=== PATIENT | female | born 1995 ===

== ENCOUNTER 2024-07-03 08:37 | Outpatient (AMB) | payer BC, SELFPAY ==
[2024-07-03 09:08] VITALS: BP 109/73; PULSE 81; RESP 18; TEMP 36.2; O2SAT 98; BMI 28.8
--- NOTE | 2024-07-03 09:08 | AMB.OBINITIA ---
Vital Signs 07/03/24 09:08 Height 1.55 m Height Method Stated Weight 69.059 kg Weight Measurement Method Standing Scale BMI 28.8 BP 109/73 Blood Pressure Source Automatic Cuff Blood Pressure Location Left Upper Arm Position Standing Respiration 18 Pulse 81 Pulse Source Monitor Temp 97.2 F Temp Source Oral Pulse Oximetry (%) 98 Oxygen Delivery Method Room Air Allergies/Home Meds Allergies & Medications Allergies Unable to Assess Allergy (Unverified 07/03/24 09:10) Medication Reconciliation No Known Home Medications 07/03/24 [History Confirmed 07/03/24] Intake Visit Data Collection New Patient or Established: New Patient (never been to [facility]) Reason for Visit:: New OB visit Seen by Clinical Staff ONLY (RN/MA): No Admitting Representative Required: No Do You Feel Safe at Home: Yes Authorities Contacted: N/A PCP or OBGYN visit in last 3 months: No Hx Now: Yes Are you currently on any form of Control: No Last menstrual period: 04/03/24 Pain Present Currently: No Pain Scale Used: Olivarez-Blanco/Numerical Pain scale:: 0 Smoking Status Smoking Status: Never smoker Questionnaires Covid-19 Vaccine Questionnaire Has patient been vacinated for Covid-19 Have you been vacinated for Covid-19: Yes PHQ-9 PHQ-2 Over the last 2 weeks, how often have you been bothered by any of the following problems? 1. Little interest or pleasure in doing things: not at all 2. Feeling down, depressed, or hopeless: not at all Total score: 0 PHQ-9 3. Trouble falling or staying asleep, or sleeping too much: Not at all 4. Feeling tired or having little energy: Not at all 5. Poor appetite or overeating: Not at all 6. Feeling bad about yourself - or that you are a failure or have let yourself or your family down: Not at all 7. Trouble concentrating on things, such as reading the newspaper or watching television: Not at all 8. Moving or speaking so slowly that other people could have noticed? - Or the opposite - being so fidgety or restless that you have been moving around a lot more than usual: not at all 9. Thoughts that you would be better off or of hurting yourself in some way: Not at all Total score: 0 If you checked off any problems, how difficult have these problems made it for you to do your work, take care of things at home, or get along with other people?: not difficult at all Source: Developed by Drs. Andrew Ewing, Aneglica Dumas, Chau Lr and colleagues, with an educational christina from [employer]. Depression screen completed yes Social History Living Situation History Marital Status: Lives With: Family Housing: House Tobacco History Smoking Status: Never smoker Alcohol History Alcohol Intake: Never Domestic Abuse History Do You Feel Safe at Home: Yes Past Medical History Past Medical History Have you ever been diagnosed with any of the following: Reproductive Problems Breast Cancer: No Endometriosis: No Fibroids: No Genital Herpes: No Gonorrhea: No Pelvic Inflammatory Disease: No Polycystic Ovarian Syndrome: No Previous Pregnancies: No Syphilis: No Endocrine Problems Diabetes Mellitus Type 2: No Blood Problems Anemia: Yes (Iron deficiency anemia in past) Surgical History Appendectomy: Yes (Open appendectomy 2012) History of Present Illness HPI Narrative The patient is a 29-year-old G1, 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 [facility]. She presents with her who is an RN. He is working in mental health and working on his nurse practitioner. Patient is 14 weeks . She had an ultrasound with Dr. Smart and all her lab work drawn at [facility]. She has the results on her phone but I do not have a copy. Her EDC is 01/06/2025. She denies nausea vomiting bleeding. She states it is hard to get to [place] and was wondering if I could comanage with [facility]. I told her I did not think this was possible but anyone in our clinic could see her based on her schedule. She might have to see any of our providers based on when she is available. She just recently got and has not been sexually active until marriage.. She declines a Pap and pelvic exam today. She has never had a Pap or pelvic exam. OB Ultrasound Indication Indication: Viability and dates OB Ultrasound Ultrasound technique: transabdominal (Patient declined transvaginal ultrasound) Gestational sac assessment: Presence, location, size, shape: Live intrauterine with a crown-rump length of 8.2 cm corresponding to 14 weeks 1 day and an EDC of January 02, 2025 Embryo/ Assessment 1: Cardiac activity confirmation: Yes [place]-rump length (cm): 8.2 OB Initial Visit Menstrual History Menstrual reliability: definite Flow: normal Menstrual regularity: regular Monthly: Yes Age at menarche: 11 On control pills at conception: No OB History : 1 Para: 0 Hx # Pregnancies: 0 Hx Total # of Abortions (Spontaneous & Elective): 0 # of Living Children: 0 Infection History & Risk Evaluation History of STDs: none HIV risk evaluation: low risk Hepatitis B risk evaluation: low risk Patient or partner has history of Genital Herpes: No Varicella/chicken pox status: immunized Genetic Screening & History Genetic Screening/Teratology Counseling - Includes patient, baby's father, or anyone in either family with: 1. Patient's age 35 years or older as of estimated date of delivery: No 2. Thalassemia (Malay, Kosovan, Mediterranean, or Background); MCV less than 80: No 3. Neural Tube Defect (Meningomyelocele, Spina Bifida, or Anencephaly): No 4. Congenital Heart Defect: No 5. Down Syndrome: No 6. Jama-Sachs (Ashkenazi Sabianism, Cajun, Khmer Jarales): No 7. Nathalia Disease (Ashkenazi Sabianism): No 8. Familial Dysautonomia (Ashkenazi Sabianism): No 9. Sickle Cell Disease or Trait (): No 10. Hemophilia or other blood disorders: No 11. Muscular Dystrophy: No 12. Cystic Fibrosis: No 13. [place]'s Chorea: No 14. Mental Retardation/Autism: No 15. Other inherited genetic or chromosomal disorder: No 16. Maternal Metabolic Disorder (EG,TYPE 1 Diabetes, PKU): No 17. Patient or baby's father had a child with defects not listed above: No 18. Recurrent loss or a stillbirth: No 19. Medications (including supplements, vitamins, herbs or otc drugs)/illicit/recreational drugs/alcohol since last menstrual period: No 20. Any other: No Comments/Counseling: The patient desires genetic testing and an order for Roberto genetic testing was given Infection History 1. Live with someone with TB or exposed to TB: No 2. Rash or viral illness since last menstrual period: No 3. Hepatitis B,C: No Other (see comments) Source: [employer] Assessment & Plan Diagnosis / Problem List (1) : Status: Acute Qualifiers: Weeks of gestation: 14 weeks Qualified Code(s): Z3A.14 - 14 weeks gestation of Plan: We will need to get patient's labs from [facility]. She was offered an NIPT she will probably desire a structural survey with Dr. Smart. Follow-up in 4 weeks. Office Procedures OB Clinic LOC & Office Proc's Nursing/Assessment Patient Status: Initial/New Patient OB Clinic Nursing Assessment: BP Monitoring, Medication Reconciliation, Update PMH in EMR and Vital Signs OB Clinic Coordination of Care: Consent,records obtained, informed consent and Lab and Imaging orders Special Needs: Heart tones New Patient Charge New Patient Point Assignment: 1094 New Patient Point Charge: FLATCAR WHACKER Level 3 ([id number]) Bedside Ultrasounds US Transabdominal <14 weeks at bedside: Yes
== END 2024-07-03 09:59 | disposition home or self-care (01) ==
LOC: HODSOBC 08:37
PROVIDERS: Supervising Provider Obstetrics & Gynecology; Visit Provider Obstetrics & Gynecology
DX: Z34.02 Encounter for supervision of normal first pregnancy, second trimester (principal); Z3A.14 14 weeks gestation of pregnancy
CPT/HCPCS: 76801; 99203; G0463